=== PATIENT | male | born 1965 | race Caucasian/White ===

== ENCOUNTER 2025-07-16 19:11 | Emergency (ER) | payer OTHER, SELFPAY ==
[2025-07-16 19:12] VITALS: BMI 21.1
[2025-07-16 19:45] VITALS: BP 113/81; PULSE 69; RESP 18; TEMP 36.9; O2SAT 95
--- NOTE | 2025-07-16 19:46 | EKG_ITS ---
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
--- NOTE | 2025-07-16 19:46 | XR_ITS ---
Examination: CT abdomen and pelvis without contrast. Coronal 3-D reconstructions. Sagittal 2-D reconstructions. Date and time of exam:July 16, 20251957 hrs., Comparison April 15, 2022 Indications: Onset abdominal pain beginning 3 days ago CTDI: vol (mGy): 5.19 DLP: (mGycm): 266 Technique: Axial images of the abdomen have been obtained, 3 mm slice thickness Intravenous contrast material has not been administered. Low dose protocols were performed. One or more of the following dose reduction techniques were used; automated exposure control, adjustment of the mA and/or KV according to patient size, use of iterative reconstruction technique. Findings: No focal liver or splenic lesions No gallstones No pancreatic or adrenal mass No renal or ureteral calculi Aorta normal size No bowel obstruction Colonic diverticulosis, no diverticulitis No prostatomegaly Urinary bladder intact no pericecal inflammatory change, absent appendix Moderate osteopenia Impression: No renal or ureteral calculi, no hydronephrosis Negative for pancreatitis Absent appendix No bowel obstruction diverticulitis or free air
--- NOTE | 2025-07-16 19:47 | PD.EDRME ---
Rapid Medical Screening Exam RME Arrival date/time: 07/16/25 19:11 This is a case of 59-year-old male with no medical history came in in the emergency room due to abdominal pain mostly in the epigastric area radiating to his chest with nausea vomiting for 3 days worsening of the symptoms this patient decided to start consult here in the emergency room Chief Complaint: Abdominal Pain Time Seen by Provider: 07/16/25 19:22 Vital signs: Vital Signs Temperature 98.4 F 07/16/25 19:45 Pulse Rate 69 07/16/25 19:45 Respiratory Rate 18 07/16/25 19:45 Blood Pressure 113/81 07/16/25 19:45 Pulse Oximetry (%) 95 07/16/25 19:45 Oxygen Delivery Method Room Air 07/16/25 19:45
[2025-07-16 20:36] LABS: Basophils # (Auto) 0.0 Thou/mm3 (0.0-0.2); Basophils % (Auto) 1 % (0-2.5); Eosinophils # (Auto) 0.3 Thou/mm3 (0.0-0.5); Eosinophils % (Auto) 4 % (0-10); Hematocrit 44.0 % (41.0-53.0); Hemoglobin 14.9 g/dL (13.5-16.0); Immature Granulocytes Auto 0.03 Thou/mm3 (0.00-0.00); Lymphocytes # (Auto) 1.9 Thou/mm3 (1.0-4.8); Lymphocytes % (Auto) 23 % (10-50); Mean Corpuscular HGB Conc 33.9 g/dl (31.0-37.0); Mean Corpuscular Hemoglobin 30.9 pg (25.0-35.0); Mean Corpuscular Volume 91 fL (80-100); Monocytes # (Auto) 0.8 Thou/mm3 (0.0-0.8); Monocytes % (Auto) 9 % (0-12); Neutrophils # (Auto) 5.4 Thou/mm3 (1.8-7.7); Neutrophils % (Auto) 63 % (37-80); Nucleated Red Blood Cell # 0.00 Thou/mm3 (0.00-0.00); Nucleated Red Blood Cell % 0 /100 WBC (0); Platelet Count 177 Thou/mm3 (140-440); RDW Standard Deviation 46.4 fL (35.1-43.9); Red Blood Count 4.82 Miln/mm3 (4.50-5.90); White Blood Count 8.6 Thou/mm3 (3.8-10.6)
[2025-07-16 20:47] LABS: Collection Type, Urine Clean Catch; Squamous Epithelial Cell,Urine 0 /hpf (0-5)
[2025-07-16 20:53] LABS: Alanine Aminotransferase 11 U/L (10-49); Albumin, Serum 4.7 gm/dL (3.5-5.0); Albumin/Globulin Ratio 2.5 (1.2-2.2); Alkaline Phosphatase 39 U/L (46-116); Amylase 78 U/L (30-118); Anion Gap 5 (7-16); Aspartate Amino Transferase 16 U/L (0-34); BUN/Creatinine Ratio 13 Ratio (12-20); Bilirubin,Total 0.4 mg/dL (0.3-1.2); Blood Urea Nitrogen 10 mg/dL (9-23); Calcium 10.0 mg/dL (8.3-10.6); Calcium (Corrected) 10.0 mg/dL (8.5-10.1); Carbon Dioxide 29.6 mMol/L (20.0-31.0); Chloride 107 mMol/L (98-107); Creatinine (Component) 0.8 mg/dL (0.6-1.3); Estimated Creatinine Clearance 86.1 mL/min (>60); Globulin 1.9 gm/dL (2.3-3.5); Glucose 91 mg/dL (74-106); Osmolality,Calculated 282 (275-295); Potassium 4.1 mMol/L (3.4-5.1); Sodium 142 mMol/L (136-145); Total Protein 6.6 gm/dL (5.7-8.2); Troponin I < 0.002 ng/mL (0.0-0.045); eGFR > 60 See Note
[2025-07-16 21:00] LABS: Amorphous Crystals,Urine Present (Absent); Bilirubin,Urine Negative (Negative); Blood,Urine Negative (Negative); Clarity,Urine Clear (Clear/Hazy); Color,Urine Yellow (Lt Yel-Yel); Glucose, Urine Negative (Negative); Ketones,Urine Negative (Negative); Leukocyte Esterase,Urine Negative (Negative); Nitrite,Urine Negative (Negative); PH,Urine 7.5 (5.0-7.0); Protein,Urine Negative (Neg - Trace); RBC,Urine 5 /hpf (0-3); Specific Gravity,Urine 1.024 (1.001-1.035); Urobilinogen,Urine Negative mg/dL (0.0-1.0); WBC,Urine < 1 /hpf (0-5)
--- NOTE | 2025-07-16 21:07 | EDNOTE_ITS ---
ED Abdominal Pain RME/HPI General Chief Complaint: Abdominal Pain Stated complaint: ABDOMINAL PAIN; ANXIETY Time seen by provider: 07/16/25 19:22 Arrival date/time: 07/16/25 19:11 RME / HPI RME / HPI narrative: 07/16/25 19:11 This is a case of 59-year-old male with no medical history came in in the emergency room due to abdominal pain mostly in the epigastric area radiating to his chest with nausea vomiting for 3 days worsening of the symptoms this patient decided to start consult here in the emergency room DR. MORRISON MAIN ED EVALUATION: Patient presents with epigastric abdominal pain for 2 days duration without radiation or associated nausea, vomiting, melena, or dark/tarry stool. Describes pain as burning, no change with PO intake, no sign of relief with OTC antacids. Patient report history of perforated dueodenal ulcer remotely. PMH: Previous duodenal ulcer, no DM or HTN. Anxiety disorder. PSH: Prior exploratory laporotomy for perforated ulcer. Social: Long-standing smoker, denies alcohol or illicit drug abuse. Related Data Previous Rx's ?Medication ?Instructions ?Recorded cyclobenzaprine 10 mg tablet 10 mg PO TID #14 tabs 11/18 meloxicam 15 mg tablet (Mobic) 15 mg PO QDAY #14 tabs 09/01/18 metoclopramide HCl 5 mg tablet 5 mg PO BID #30 tabs (Reglan) pantoprazole 40 mg granules 40 mg PO QDAY 30 days #30 ea 07/16/25 delayed-release for susp in packet Allergies Allergy/AdvReac Type Severity Reaction Status Date / Time No Known Allergies Allergy Verified 07/16/25 19:13 Review of Systems Review of Systems Systems Reviewed: All systems reviewed, normal except as documented Past Medical History Past Medical History GASTROINTESTINAL: Positive Gastrointestinal Disorders and Ulcer (gastric ulcers) PSYCHO/SOCIAL: Positive Recreational Drug Use Surgical History SURGICAL: Positive Abdominal Surgery Social History SMOKING STATUS: Light (< 1 pack/day) SUBSTANCE USE: other (Fentanyl) ED Exam Narrative Physical exam: GEN. APPEARANCE: The patient is alert awake oriented X-3 in distress, lying down comfortably, does not look ill/toxic. Patient has good eye contact. Patient is cooperative. VITALS: All vitals were reviewed and the pulse ox is 95% on room air which is normal according to my interpretation. HEENT: Normocephalic, atraumatic. Pupils are equal and reactive. Oral mucosa is moist. Patent Nares NECK: Supple, nontender, no thyromegaly, no meningismus, no JVD, no step offs CHEST: Symmetrical, atraumatic, and with equal expansion , Nontender on palpation no deformity and no crepitus. CARDIOVASCULAR: Heart regular rhythm no murmur or gallop rub or extra beats. LUNGS: Clear to auscultation bilaterally with symmetrical chest rise. No laboring tachypnea or wheezing. No intercostal subcostal retraction. No rales and no rhonchi. ABDOMEN: Soft, flat, nontender to palpation, no guarding or rebound tenderness. There are no abnormal masses palpated. Active and normal bowel sounds. EXTREMITIES: Nontender. No edema. No cyanosis. Patient is able to move all 4 extremities well, with full ROM and good CSM. SKIN: Warm and dry, no jaundice or rashes noted. MUSCULOSKELETAL: No lubar or midline bony tenderness. There is no CVA tenderness. No paraspinal muscle spasm or tenderness. NEURO: Patient is IBARRA x 4, Cranial nerves II through XII grossly intact. There is no focal neurologic deficits noted. GCS is 15, PNS and PERFORMANCE IMPROVEMENT ANALYST appear grossly intact. PSYCHIATRIC: Patient is in normal mood and affect, cooperative, no SI or HI or hallucinations. PE: chronically ill with no acute distress ab: mildly tend mid epihas or peritonel findingds Course Quality Measures none Orders Category Date Time Status EKG (ED ONLY) *Do not use* NOW Care 07/16/25 19:[address] abdomen pelvis wo con Stat Exams 07/16/25 19:46 Completed EKG (ED Only) Stat Exams 07/16/25 19:46 Draft Amylase Stat Lab 07/16/25 20:25 Completed CBC Stat Lab 07/16/25 20:25 Completed Comprehensive Metabolic Panel Stat Lab 07/16/25 20:25 Completed Troponin I Stat Lab 07/16/25 20:25 Completed Urinalysis Stat Lab 07/16/25 20:42 Completed Lidocaine 2% Viscous [Xylocaine 2% Viscous] Med 07/16/25 21:14 Discontinued 15 ml PO X1 ONE mg Hyd/Al Hyd/Chris Susp [Maalox Susp] Med 07/16/25 21:14 Discontinued 30 ml PO X1 ONE Vital Signs Vital signs: Vital Signs Temperature 98.4 F 07/16/25 19:45 Pulse Rate 69 07/16/25 19:45 Respiratory Rate 18 07/16/25 19:45 Blood Pressure 113/81 07/16/25 19:45 Pulse Oximetry (%) 95 07/16/25 19:45 Oxygen Delivery Method Room Air 07/16/25 19:45 Abdominal Pain MDM MDM Narrative MDM Narrative:: Scribe Attestation: I, Ira Odom, am scribing for and in the presence of Dr. Morrison. Provider Notation: Although this document has been carefully reviewed, there may still be some phonetic and other typographical errors. These errors are purely grammatical due to imperfections in the software program and should not be construed in any way to compromise the substance of the patient's medical care during this visit. Patient presents with epigastric abdominal pain for 2 days duration without radiation or associated nausea, vomiting, melena, or dark/tarry stool. Describes pain as burning, no change with PO intake, no sign of relief with OTC antacids. Please see PE findings. Laboratory markers, including CBC, serum chemistries, and UA essentially unremarkable. Amylase is also unremarkable. Patient treated with GI cocktail and able to ambulate without difficulty. Suspect gastritis, possibly early ulcer disease. Patient placed on PPI and propulsive agent. Will refer to GI specialist for outpatient upper endoscopy. Patient data External records reviewed:: [facility] previous records (Reviewed prior ED records from 04/15/22. Patient was seen for Acute appendicitis.) Clinical information provided by:: patient Social determinants that could affect healthcare access:: substance use (Fentanyl) Patient has the following chronic illnesses:: Gastric Ulcer, Recreational drug use How is presenting disease/condition affected by chronic disease/condition?: exacerbated by Evaluation data The following diagnostics were reviewed and interpreted by me:: lab results, radiology exam(s) and EKG tracing(s) Lab and/or radiology exams considered but not ordered:: None Interpretation Summary: RADIOLOGY Abdomen/Pelvis CT: Findings: No focal liver or splenic lesions No gallstones No pancreatic or adrenal mass No renal or ureteral calculi Aorta normal size No bowel obstruction Colonic diverticulosis, no diverticulitis No prostatomegaly Urinary bladder intact no pericecal inflammatory change, absent appendix Moderate osteopenia Impression: No renal or ureteral calculi, no hydronephrosis Negative for pancreatitis Absent appendix No bowel obstruction diverticulitis or free air Medications / Prescriptions Medications or Prescriptions considered but not ordered:: None Medication administrations:: Medication Administration History Discontinued Medications Al Hydrox/Mg Hydrox/Simethicone (Mg Hyd/Al Hyd/Chris (Maalox Reg) Susp 30 Ml Udc) 30 ml PO X1 ONE Stop: 07/16/25 21:15 Last Admin: 07/16/25 21:32 Dose: 30 ml Documented By: CVL Lidocaine HCl (Lidocaine Viscous 2% 15 Ml Udc) 15 ml PO X1 ONE Stop: 07/16/25 21:15 Last Admin: 07/16/25 21:33 Dose: 15 ml Documented By: CVL See above if any Consultations Consultation(s) initiated? (list below): No Diagnosis Differential diagnosis abdominal pain: abdominal pain, calculus of kidney, constipation, diverticulitis, gastroenteritis, pancreatitis and small bowel obstruction Most likely diagnosis given after review of the tests above:: Gastritis Admission Indicated Admission indicated?: not indicated Explain why admission is indicated or not indicated:: Patient does not meet admission criteria Admission Request Was there a request for admission?: No Disposition Plan Disposition Plan: Discharge Discharge Attestation Discharge Attestation: The patient and all family members were given an opportunity to ask questions and understood the discharge instructions. Discharge instructions specifically effects, indications for sooner follow up or return to the emergency department, and the expected course of current diagnosis. Patient condition: Stable Discharge Plan Plan Patient Disposition: HOME (Self Care) Discharge Disposition comment: stable Prescriptions/Referrals Prescriptions/Med Rec: New metoclopramide HCl [Reglan] 5 mg tablet 5 mg PO BID Qty: 30 0RF Rx Instructions: Take 1 tablet 30 minutes prior to breakfast and 1 tablet 30 minutes prior to bedtime. pantoprazole [address] for susp in packet 40 mg PO QDAY 30 Days Qty: 30 1RF No Action cyclobenzaprine 10 mg tablet 10 mg PO TID Qty: 14 0RF meloxicam [Mobic] 15 mg tablet 15 mg PO QDAY Qty: 14 0RF Referrals: No Primary/Family,Physician [Primary Care Provider] - In 1 week Problem List Clinical Impression: Gastritis Patient/Caregiver Discharge Instructions Discharge Activity: activity as tolerated Education Materials: ED Gastritis (Adult) Additional Instructions: Reduce smoking, avoid dairy products, medication as directed, follow-up with Dr. Avalos for consideration of upper endoscopy. Return for black tarry stools escalating pain vomiting blood or worsening illness. Print Language: French Stand Alone Forms: [employer] Award Info., Patient Portal Info Letter
[2025-07-16] MEDS: MG HYD/AL HYD/SIME (Maalox Reg) SUSP 30 ML UDC PO (21:32)
[2025-07-16] MEDS: LIDOCAINE VISCOUS 2% 15 ML UDC PO (21:33)
== END 2025-07-16 23:21 | disposition home or self-care (01) ==
PROVIDERS: Nurse Practitioner Family; Emergency Provider Emergency Medicine
DX: K29.70 Gastritis, unspecified, without bleeding (principal)
CPT/HCPCS: 36415; 74176; 80053; 81001; 82150; 84484; 85025; 93005; 99283; J3490; A9270